=== PATIENT | female | born 1945 | race Two or more races ===

== ENCOUNTER 2024-09-06 10:27 | Emergency (ER) | payer MEDICARE, MEDICAID ==
[~2024-09-06] VITALS: Ht 160 cm; Wt 61.5 kg
[2024-09-06 11:02] VITALS: BP 170/80; PULSE 82; RESP 18; TEMP 98.7; O2SAT 95
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
== END 2024-09-06 11:38 | disposition home or self-care (01) ==
LOC: EDBD 10:27 → ER 10:27
DX: Z00.00 Encounter for general adult medical examination without abnormal findings (principal); Z88.0 Allergy status to penicillin; V89.2XXA Person injured in unspecified motor-vehicle accident, traffic, initial encounter; Y93.89 Activity, other specified; Y92.89 Other specified places as the place of occurrence of the external cause; Y99.8 Other external cause status